=== PATIENT | female | born 1995 | race Caucasian/White ===

== ENCOUNTER 2016-07-09 22:44 | Emergency (ER) | payer SELFPAY ==
[~2016-07-09] VITALS: Ht 170.2 cm; Wt 104.3 kg
[2016-07-09 23:27] LABS: BILIRUBIN,URINE NEGATIVE (NEGATIVE); KETONES,URINE NEGATIVE (NEGATIVE); LEUKOCYTE ESTERASE ,URINE 2+ (NEGATIVE); NITRITE,URINE NEGATIVE (NEGATIVE); PH,URINE 6.5 (5-9); PROTEIN,URINE 4+ (NEGATIVE); UROBILINOGEN,URINE 1 MG/DL (NORMAL)
[2016-07-09 23:29] LABS: SQUAMOUS EPITHELIAL CELL,UR 0-2 /HPF
[2016-07-10] MEDS ORDERED: KETOROLAC 60 MG/2 ML VIAL IM STA (00:46)
[2016-07-10] MEDS ORDERED: CEPHALEXIN 250 MG (KEFLEX) CAP PO STA (00:46)
--- NOTE | 2016-07-10 00:54 | ED GU-Female ---
General Chief Complaint: -Female Stated Complaint: POSS UTI W BLEEDING Nursing Triage Note: Pt presents to ED with c/o dysuria and hematuria that began at 1900 tonight. Nursing Sepsis Screen: No Definite Risk Source: patient Exam Limitations: no limitations History of Present Illness Time seen by provider: 00:35 Initial Comments Here with complaint of painful urination and bloody urination that started tonight. States that she has had this diarrhea yesterday and some nausea today and maybe a little back pain earlier today. She has never had a urinary tract infection. She is sexually active and is on control and is currently on her menstrual period. Denies fevers or chills. Timing/Duration: this afternoon Severity/Quality: moderate, burning Location: suprapubic, urethral Radiation: back Activities at Onset: none Prior Genitourinary Problems: none Sexual [place] History: less than 2 months ago, single partner Associated Symptoms: No fever/chills, lower back pain nausea/vomiting urinary frequency Allergies and Home Medications Allergies Coded Allergies: No Known Drug Allergies (Unverified , 07/10/16) Home Medications Cephalexin 500 Mg Tablet #13 500 MG PO BID Prescribed by: TASHIA CR on 07/10/16 0115 Constitutional: see HPINo chills, No fever Respiratory: no symptoms reported Cardiovascular: no symptoms reported Gastrointestinal: nauseaNo vomiting Genitourinary: see HPI burning hematuria : No Musculoskeletal: back painNo muscle pain All Other Systemes Reviewed Negative Unless Noted: Yes Past Mdagfxb-Jtopka-Lfibla Hx Patient Social History Alcohol Use: Occasionally Uses Recreational Drug Use: No Smoking Status: Never a Smoker 2nd Hand Smoke Exposure: No Recent Foreign Travel: No Contact w/Someone Who Travel: No Recent Infectious Disease Expo: No Recent Hopitalizations: No Immunizations Up To Date Tetanus Booster (TDap): Less than 5yrs Seasonal Allergies Seasonal Allergies: No Surgeries HX Surgeries: No Respiratory Hx Respiratory Disorders: No Cardiovascular Hx Cardiac Disorders: No Neurological Hx Neurological Disorders: No Reproductive System Hx Reproductive Disorders: No Sexually Transmitted Disease: No HIV/AIDS: No Genitourinary Hx Genitourinary Disorders: No Gastrointestinal Hx Gastrointestinal Disorders: No Musculoskeletal Hx Musculoskeletal Disorders: No Endocrine Hx Endocrine Disorders: No HEENT HX ENT Disorders: No Cancer Hx Cancer: No Psychosocial Hx Psychiatric Problems: No Integumentary HX Skin/Integumentary Disorder: No Blood Transfusions Hx Blood Disorders: No Adverse Reaction to a Blood Tr: No Reviewed Nursing Assessment Reviewed/Agree w Nursing PMH: Yes Physical Exam Vital Signs Vital Sign - Last 12Hours 07/09/16 22:50 Temp 97.9 Pulse 84 Resp 18 B/P 164/94 Pulse Ox 98 O2 Delivery Room Air Capillary Refill : Less Than 3 Seconds General Appearance: WD/WN no apparent distress Neck: full range of motion supple Cardiovascular: regular rate, rhythm no murmur Respiratory: lungs clear normal breath sounds Gastrointestinal: non tender soft Back: normal inspection no CVA tenderness no vertebral tenderness Extremities: non-tender normal inspection Neurologic/Psychiatric: alert oriented x 3 Progress/Results/Core Measures Results/Orders Lab Results Laboratory Tests Test 07/09/16 23:00 07/10/16 01:05 Range/Units Urine Bacteria TRACE /HPF Urine Bilirubin NEGATIVE NEGATIVE Urine Casts NONE /LPF Urine Clarity CLOUDY H Urine Color RED H Urine Crystals NONE /LPF Urine Culture Indicated YES Urine Glucose (UA) NEGATIVE NEGATIVE Urine Ketones NEGATIVE NEGATIVE Urine Leukocyte Esterase 2+ H NEGATIVE Urine Mucus NEGATIVE /LPF Urine Nitrite NEGATIVE NEGATIVE Urine Test NEGATIVE NEGATIVE Urine Protein 4+ NEGATIVE Urine RBC TNTC H /HPF Urine RBC (Auto) 5+ H NEGATIVE Urine Specific [place] 1.020 1.016-1.022 Urine Squamous Epithelial Cells 0-2 /HPF Urine Urobilinogen 1 NORMAL MG/DL Urine WBC 5-10 H /HPF Urine pH 6.5 5-9 Alanine Aminotransferase (ALT/SGPT) 35 0-55 U/L Albumin 3.9 3.2-4.5 G/DL Alkaline Phosphatase 71 40-136 U/L Anion Gap 12 5-14 MMOL/L Aspartate Amino Transf (AST/SGOT) 21 5-34 U/L BUN/Creatinine Ratio 22 Band Neutrophils 0 % Basophils # (Auto) 0.1 0.0-0.1 10^3/uL Basophils % (Manual) 0 % Basophils (%) (Auto) 0 0-10 % Blood Morphology Comment NORMAL Blood Urea Nitrogen 17 7-18 MG/DL Calcium Level 9.0 8.5-10.1 MG/DL Carbon Dioxide Level 21 21-32 MMOL/L Chloride Level 106 98-107 MMOL/L Creatinine 0.79 0.60-1.30 MG/DL Eosinophils # (Auto) 0.2 0.0-0.3 10^3/uL Eosinophils % (Manual) 0 % Eosinophils (%) (Auto) 2 0-10 % Estimat Glomerular Filtration Rate > 60 Glucose Level 99 70-105 MG/DL Hematocrit 43 35-52 % Hemoglobin 14.7 11.5-16.0 G/DL Lymphocytes # (Auto) 2.5 1.0-4.0 X 10^3 Lymphocytes % (Manual) 15 % Lymphocytes (%) (Auto) 18 12-44 % Mean Corpuscular Hemoglobin 28 25-34 PG Mean Corpuscular Hemoglobin Concent 34 32-36 G/DL Mean Corpuscular Volume 83 80-99 FL Mean Platelet Volume 9.2 7.4-10.4 FL Monocytes # (Auto) 1.3 H 0.0-1.0 X 10^3 Monocytes % (Manual) 6 % Monocytes (%) (Auto) 9 0-12 % Neutrophils # (Auto) 10.3 H 1.8-7.8 X 10^3 Neutrophils % (Manual) 77 % Neutrophils (%) (Auto) 72 42-75 % Platelet Count 401 H 130-400 10^3/uL Potassium Level 3.9 3.6-5.0 MMOL/L Reactive Lymphocytes 2 % Red Blood Count 5.18 4.35-5.85 10^6/uL Red Cell Distribution Width 13.0 10.0-14.5 % Sodium Level 139 135-145 MMOL/L Total Bilirubin 0.4 0.1-1.0 MG/DL Total Protein 6.6 6.4-8.2 G/DL White Blood Count 14.4 H 4.3-11.0 10^3/uL My Orders Orders-TASHIA CR MD Cbc With Automated Diff (07/10/16 00:46) Comprehensive Metabolic Panel (07/10/16 00:46) Ketorolac Injection (Toradol Injection) (07/10/16 00:46) Cephalexin Capsule (Keflex Capsule) (07/10/16 00:46) Manual Differential (07/10/16 01:05) Vital Signs/I&O Vital Sign - Last 12Hours 07/09/16 22:50 Temp 97.9 Pulse 84 Resp 18 B/P 164/94 Pulse Ox 98 O2 Delivery Room Air Blood Pressure Mean: 117 Progress Note : Progress Note Seen and evaluated. UA and UCG done. UCG negative. UA shows moderate blood and findings concerning for urinary tract infection. We will check labs as patient has never had anything like this before. History and presentation are not typical for kidney stone but this is in the differential. We discussed different options for evaluation. Patient would like to avoid CT of 1 extensive scanning currently due to cost but was okay with labs. Toradol 60 mg IM and Keflex 500 mg by mouth. Monitor patient. 0133: Labs reviewed. No significant findings on chemistries. Does have mild elevation in white blood cell count. We will treat outpatient UTI and patient will follow-up or return if systems persistent or worsen. Discharged home with return precautions. Patient verbalize understanding instructions and agreement with plan. Departure Impression Impression: Primary Impression: Urinary tract infection Qualified Code: N30.01 - Acute cystitis with hematuria Disposition: HOME, SELF-CARE Condition: Improved Departure-Patient Inst. Decision time for Depature: 01:13 Referrals: NO,LOCAL PHYSICIAN (PCP) Primary Care Physician Patient Instructions: Urinary Tract Infection, Adult (DC) Add. Discharge Instructions: All discharge instructions reviewed with patient and/or family. Voiced understanding. You may take ibuprofen 800 mg every 8 hours as needed for pain or fever. You may take Tylenol 1000 mg every 8 hours as needed for fever or pain. You may use [id number] Azo per package directions for urinary tract pain. Drink plenty of fluids. Take medications as prescribed. Follow-up with your Dr. in a few days for recheck. Return for worse pain, fever, vomiting, weakness, breathing problems or other concerns as needed. Scripts Cephalexin 500 Mg [id number] Mg PO BID #13 TAB Ref 0 Prov:TASHIA CR MD 07/10/16 TASHIA CR MD Jul 10, 2016 00:54
[2016-07-10 01:13] LABS: BASOPHILS # (AUTO) 0.1 10^3/uL (0.0-0.1); BASOPHILS % (AUTO) 0 % (0-10); EOSINOPHILS # (AUTO) 0.2 10^3/uL (0.0-0.3); EOSINOPHILS % (AUTO) 2 % (0-10); LYMPHOCYTES # (AUTO) 2.5 X 10^3 (1.0-4.0); LYMPHOCYTES % (AUTO) 18 % (12-44); MEAN CORPUSCULAR HEMOGLOBIN 28 PG (25-34); MEAN CORPUSCULAR HGB CONC 34 G/DL (32-36); MEAN CORPUSCULAR VOLUME 83 FL (80-99); MEAN PLATELET VOLUME 9.2 FL (7.4-10.4); MONOCYTES # (AUTO) 1.3 X 10^3 (0.0-1.0); MONOCYTES % (AUTO) 9 % (0-12); NEUTROPHILS # (AUTO) 10.3 X 10^3 (1.8-7.8); NEUTROPHILS % (AUTO) 72 % (42-75); PLATELET COUNT 401 10^3/uL (130-400); RED BLOOD COUNT 5.18 10^6/uL (4.35-5.85); WHITE BLOOD COUNT 14.4 10^3/uL (4.3-11.0)
[2016-07-10] MEDS ORDERED: CEPH500T PO (01:15)
[2016-07-10 01:31] LABS: BAND NEUTROPHILS 0 %; BASOPHILS % (MANUAL) 0 %; EOSINOPHILS % (MANUAL) 0 %; LYMPHOCYTES % (MANUAL) 15 %; NEUTROPHILS % (MANUAL) 77 %; REACTIVE LYMPHOCYTES 2 %
[2016-07-10 01:32] LABS: ALANINE AMINOTRANSFERASE 35 U/L (0-55); ALBUMIN 3.9 G/DL (3.2-4.5); ANION GAP 12 MMOL/L (5-14); ASPARTATE AMINO TRANSFERASE 21 U/L (5-34); BILIRUBIN,TOTAL 0.4 MG/DL (0.1-1.0); BLOOD UREA NITROGEN 17 MG/DL (7-18); BUN/CREATININE RATIO 22; CARBON DIOXIDE 21 MMOL/L (21-32); CHLORIDE 106 MMOL/L (98-107); CREATININE SERUM 0.79 MG/DL (0.60-1.30); GFR ESTIMATED > 60; GLUCOSE 99 MG/DL (70-105); POTASSIUM 3.9 MMOL/L (3.6-5.0); SODIUM 139 MMOL/L (135-145); TOTAL PROTEIN 6.6 G/DL (6.4-8.2)
[2016-07-10 01:46] VITALS: BP 133/77
== END 2016-07-10 01:46 | disposition home or self-care (01) ==
LOC: ER 22:49
DX: N30.01 Acute cystitis with hematuria (principal)
CPT/HCPCS: 36415; 80053; 81000; 84703; 85007; 85027; 87088; 87186; 96372; 99282